=== PATIENT | male | born 1970 | race Two or more races ===

== ENCOUNTER → 2019-08-03 | Outpatient (CLI) | payer OTHER ==
[2019-08-03 12:11] LABS: BASO # 0.1 x10^3/uL (0.0-0.2); BASO % 1 % (0-3); EOS # 0.3 x10^3/uL (0.0-0.7); EOS % 4 % (0-3); HEMATOCRIT 50.1 % (39.0-53.0); HEMOGLOBIN 16.6 g/dL (13.0-17.5); LYMPH # 1.9 x10^3/uL (1.0-4.8); LYMPH % 25 % (24-48); MEAN CORPUSCULAR HEMOGLOBIN 29 pg (25-35); MEAN CORPUSCULAR HGB CONC 33 g/dL (31-37); MEAN CORPUSCULAR VOLUME 87 fL (79-100); MONO # 0.6 x10^3/uL (0.0-1.1); MONO % 8 % (0-9); NEUT # 4.5 x10^3uL (1.8-7.7); NEUT % 62 % (31-73); PLATELET COUNT 227 x10^3/uL (140-400); RED BLOOD COUNT 5.74 x10^6/uL (4.30-5.70); RED CELL DISTRIBUTION WIDTH 14.2 % (11.5-14.5); WHITE BLOOD COUNT 7.3 x10^3/uL (4.0-11.0)
[2019-08-03 12:19] LABS: ALBUMIN 3.6 g/dL (3.4-5.0); CALCIUM 8.5 mg/dL (8.5-10.1); GFR 79.1; POTASSIUM 4.3 mmol/L (3.5-5.1); TOTAL BILIRUBIN 0.4 mg/dL (0.2-1.0); TOTAL PROTEIN 7.1 g/dL (6.4-8.2)
== END | disposition home or self-care (01) ==
LOC: SPEC 11:51 → EEVIPCON 11:51
PROVIDERS: ATTEND Family Medicine
DX: Z00.00 Encounter for general adult medical examination without abnormal findings (principal)
CPT/HCPCS: 36415; 80053; 85025